=== PATIENT | male | born 1975 | race Caucasian/White ===

== ENCOUNTER 2023-03-23 12:10 | Observation (INO) ==
--- NOTE | 2023-03-23 13:09 | Emergency Department Note ---
Impression & Plan Weakness, Acute uremia, Acute hyperkalemia, CHF (congestive heart failure), Somnolence, Anemia ED Provider Note NAME: LUCIANA OCONNOR AGE: 48 SEX: M : 1975 ARRIVES VIA: Walk-In INFORMANT: [Patient][family] ED PROVIDER(S): [Jamey Ryan MD] CHIEF COMPLAINT: Confusion, weakness HISTORY OF PRESENT ILLNESS: The patient is a 48-year-old male who presents to the ER with complaints of weakness. The patient states that he has had issues for a year now with diarrhea. He cannot stop going to the bathroom. The diarrhea is watery and loose. There is no abdominal pain, no fever. The patient has not been to dialysis in 4 days. He had half of his dialysis on Tuesday, no dialysis Tuesday, Tuesday, Tuesday or Tuesday. No dialysis today. The patient was referred by the dialysis center to the ER as they were concerned that his electrolytes were critical. The patient is not short of breath, no chest pain. He does feel thirsty and washed out and weak. His family believes he at times seems confused. He has been having a harder time ambulating. He has had a significant weight loss. The patient does have known coronary disease. He had a renal transplant previously but this has now failed and he is requiring dialysis 3 times a week. The patient was told a month and a half ago that he had a bout of pancreatitis. He is scheduled to have some work done to check his gallbladder and biliary ducts. In the past, the patient has had C. difficile colitis. PMHx/PSHx/Social Hx: See Below PHYSICAL EXAM: GENERAL: Patient is in no acute distress. Thin and frail. HEENT: No acute trauma, normocephalic atraumatic, mucous membranes dry, no nasal congestion. NECK: No stridor, no adenopathy, no meningismus, trachea is midline. LUNGS: Clear to auscultation bilaterally, no wheeze, no rhonchi, breath sounds equal. HEART: Subtle systolic murmur heard best at the left sternal border, regular rate and rhythm. ABDOMEN: Soft, nontender, no peritonitis. EXTREMITIES: No cyanosis, full range of motion of all the joints without pain or difficulty. NEUROLOGIC: Somnolent but awakes to voice and answers questions appropriately, no speech slur, no acute motor or sensory deficits, no focal weakness. SKIN: No jaundice, no diaphoresis. DIFFERENTIAL DIAGNOSIS: Dehydration, hyperkalemia, electrolyte imbalance, uremia, IN, C. difficile colitis, bacterial intestinal infection, foodborne illness, bacteremia, among others. EMERGENCY DEPARTMENT PROCEDURES: MEDICAL DECISION MAKING: There is no leukocytosis, in fact, the white count is somewhat low. The patient is anemic with a hemoglobin of 11. I have no old values to use for comparison. There is a normal platelet count. INR is high at 1.5, PTT is normal. Renal panel testing shows uremia with a BUN of 95 and a creatinine of 13.12. An anion gap of 19 was seen. A mild acidosis was suspected with a CO2 of 20. Potassium was high at 5.5. Magnesium and phosphorus were both elevated. No concerning liver enzyme elevation. Total CK was not elevated making rhabdomyolysis unlikely. The patient appeared to be in a euthyroid state. ECG shows a normal sinus rhythm with LVH, no obvious ST elevation. Cardiac enzyme testing x 1 is slightly elevated. This troponin elevation could be secondary to cardiac injury or just mismatch from his heart failure and dialysis need. Stool cultures are pending. Stool C. difficile came back negative. Respiratory bio fire is pending. Chest x-ray shows cardiomegaly and some heart failure. Brain CT shows no acute bleed or mass effect. On exam, the patient was somnolent initially when he arrived but there were no focal neurologic deficits. He was easily arousable. He appeared weak and tired. Patient became agitated during his ER stay, he was given 1 mg of IV Ativan. I initially spoke with Dr. Raman of nephrology. The patient and Dr. Raman had an argument in the room and the patient fired Dr. Raman. I then spoke with Dr. St of [facility] nephrology. The patient will be dialyzed today. I did speak with the patient and his family, I did explain to him the seriousness of his presentation and findings. He understands the need for a hospitalization and for urgent dialysis. I did speak with case management, the on-call hospitalist was consulted. We have asked for records from [facility] to help us with this hospitalization, they have yet to arrive. Prior/Outside records/notes reviewed: ECG per my interpretation: Indication was weakness. The ECG shows a normal sinus rhythm with a rate of 80. LVH is present. There is some diffuse nonspecific ST change. No ST elevation. No PVCs. The QTc is 491. Continuous Cardiac Monitoring per my interpretation: An order was placed for continuous cardiac monitoring. The monitor shows a rate of 95 with normal sinus rhythm. Imaging/x-ray results per my interpretation: Chest x-ray shows some cardiomegaly and what appears to be some mild CHF. Chronic Medical/Social conditions affecting care: Requires dialysis 3 times a week. Care/Management discussed with: Nephrology-Dr. Raman and Dr. St. Case management and the on-call hospitalist. Level of care consideration(s): After review of the information above and other included data: --I believe the patient requires escalation of care to admission Critical Care Note: I have personally spent 53 minutes of critical care time in the direct management of this patient. This includes bedside care, interpretation of diagnostic studies, and testing, discussion with consultants, patient, and family members, and other required patient management activities. This 53 minutes is in excess of all separately billable procedures. DISPOSITION: Admission with nephrology consult. Past Med/Surg History Medical History ESRD (end stage renal disease) on dialysis Social History Smoking Status: Current every day smoker Feels Safe at Home: Yes Results & Data (ED) Vital Signs Vital Signs - 24 hr 03/23/23 12:24 03/23/23 13:51 03/23/23 13:52 Temperature 36.5 C Temperature Source Temporal Artery Scan Pulse Rate 95 H 84 84 Pulse Rate [Apical] Pulse Rate from SpO2 Sensor 84 Pulse Rhythm Regular Respiratory Rate 20 13 Respiratory Effort / Characteristics Non-Labored Spontaneous Respiratory Depth Normal Blood Pressure 138/83 Blood Pressure [Left Arm] Blood Pressure Mean 101 Blood Pressure Mean [Left Arm] Pulse Oximetry 100 97 Oxygen Delivery Method Room Air Sepsis Recent Fever Within 48 Hours No Sepsis New/Unexplained Change in Mental Status No Sepsis Action Taken by Nursing No Action Required 03/23/23 14:11 03/23/23 14:20 03/23/23 14:23 Temperature Temperature Source Pulse Rate 82 Pulse Rate [Apical] Pulse Rate from SpO2 Sensor 79 83 Pulse Rhythm Respiratory Rate 18 Respiratory Effort / Characteristics Respiratory Depth Blood Pressure Blood Pressure [Left Arm] Blood Pressure Mean Blood Pressure Mean [Left Arm] Pulse Oximetry 98 99 97 Oxygen Delivery Method Room Air Sepsis Recent Fever Within 48 Hours Sepsis New/Unexplained Change in Mental Status Sepsis Action Taken by Nursing 03/23/23 14:23 03/23/23 14:24 03/23/23 14:24 Temperature Temperature Source Pulse Rate 86 Pulse Rate [Apical] 81 Pulse Rate from SpO2 Sensor 80 Pulse Rhythm Respiratory Rate 16 16 Respiratory Effort / Characteristics Respiratory Depth Blood Pressure 146/90 H Blood Pressure [Left Arm] 146/90 H Blood Pressure Mean 120 Blood Pressure Mean [Left Arm] 108 Pulse Oximetry 96 100 Oxygen Delivery Method Room Air Sepsis Recent Fever Within 48 Hours Sepsis New/Unexplained Change in Mental Status Sepsis Action Taken by Nursing 03/23/23 14:30 03/23/23 14:40 03/23/23 14:50 Temperature Temperature Source Pulse Rate 84 78 82 Pulse Rate [Apical] Pulse Rate from SpO2 Sensor 84 78 78 Pulse Rhythm Respiratory Rate 11 L 13 21 Respiratory Effort / Characteristics Respiratory Depth Blood Pressure Blood Pressure [Left Arm] Blood Pressure Mean Blood Pressure Mean [Left Arm] Pulse Oximetry 99 100 100 Oxygen Delivery Method Sepsis Recent Fever Within 48 Hours Sepsis New/Unexplained Change in Mental Status Sepsis Action Taken by Nursing 03/23/23 14:57 03/23/23 14:57 03/23/23 15:00 Temperature Temperature Source Pulse Rate 76 Pulse Rate [Apical] Pulse Rate from SpO2 Sensor 76 76 Pulse Rhythm Respiratory Rate 16 Respiratory Effort / Characteristics Respiratory Depth Blood Pressure 135/86 Blood Pressure [Left Arm] Blood Pressure Mean 107 Blood Pressure Mean [Left Arm] Pulse Oximetry 100 100 Oxygen Delivery Method Sepsis Recent Fever Within 48 Hours Sepsis New/Unexplained Change in Mental Status Sepsis Action Taken by Prison Medications Current Medication List: was personally reviewed by me Laboratory Data Attestation: I reviewed the patient's lab results. 03/23/23 12:50 03/23/23 12:50 Lab Results 03/23/23 03/23/23 03/23/23 Range/Units 12:50 14:34 Unknown WBC 3.82 L (4.8-10.8) K/ul RBC 3.40 L (4.70-6.10) M/uL Hgb 11.0 L (14.0-18.0) g/dl Hct 33.3 L (42.0-52.0) % MCV 97.9 (80.0-100.0) fL MCH 32.4 (25.0-34.0) pg MCHC 33.0 (32.0-36.0) g/dL RDW Std Deviation 54.4 H (36.4-46.3) fL RDW Coeff of Chris 15.2 H (11.5-14.5) % Plt Count 190 (130-400) K/uL MPV 10.3 (9.4-12.4) fL Immature Gran % (Auto) 0.3 % Neut % (Auto) 64.1 % Lymph % (Auto) 23.3 % [place] % (Auto) 8.4 % Eos % (Auto) 2.6 % Baso % (Auto) 1.3 % Neut # (Auto) 2.45 (1.40-6.50) K/uL Lymph # (Auto) 0.89 L (1.20-3.40) K/uL [place] # (Auto) 0.32 (0.11-0.59) K/uL Eos # (Auto) 0.10 (0.00-0.50) K/uL Baso # (Auto) 0.05 (0.00-0.20) K/uL Immature Gran # (Auto) 0.01 (0.01-0.20) K/uL PT 15.6 H (9.0-12.0) Seconds INR 1.5 H (0.9-1.1) APTT 29 (21-31) Seconds PTT Ratio 1.0 Sodium 133 L (136-145) mmol/L Potassium 5.5 H (3.5-5.1) mmol/L Chloride 94 L (98-107) mmol/L Carbon Dioxide 20 L (21-32) mmol/L Anion Gap 19 H (3-11) BUN 95 H (6-23) mg/dl Creatinine 13.12 H* (0.6-1.4) mg/dl Est Cr Clr Drug Dosing Not Reportable Est GFR ( Amer) 4.5 ml/min Est GFR (Non-Af Amer) 3.9 ml/min BUN/Creatinine Ratio 7.2 L (10-20) Glucose 68 L (70-99(Fasting)) mg/dl Lactate Cancelled Calcium 9.7 (8.6-10.3) mg/dl Phosphorus 9.4 H (2.5-4.9) mg/dl Magnesium 2.7 H (1.7-2.4) mg/dl Total Bilirubin 0.7 (0.2-1.0) mg/dl AST 11 L (13-39) U/L ALT 10 (7-52) U/L Alkaline Phosphatase 144 H (34-104) U/L Ammonia 27.0 (18-72) umol/L Total Creatine Kinase 48 (30-223) U/L Troponin I High Sens 65.4 H* (0-20) pg/ml Total Protein 7.4 (6.0-8.3) gm/dl Albumin 3.8 (3.4-5.0) gm/dl Globulin 3.6 (2.5-4.0) gm/dl Albumin/Globulin Ratio 1.1 (0.9-2) TSH 0.837 (0.300-4.500) uIu/ml Stl C. diff Tox B Gene Negative Cdiff Gene (Neg) Administered Medications Discontinued Medications Lorazepam (Lorazepam 1 Mg/1 Ml Syr Ed Inj Use) 1 mg IV ONE STA Stop: 03/23/23 15:10 Last Admin: 03/23/23 15:20 Dose: 1 mg Documented By: K[facility] Imaging Data Radiologist's Impression: Chest X-Ray 03/23/23 13:05 XR chest 1V portable CLINICAL HISTORY: weakness TECHNIQUE: Single frontal radiograph of the chest was obtained. Comparison: None available at the time of this dictation. FINDINGS: No lines and tubes are seen. Cardiomegaly is noted. Prominence and cephalization of the vasculature is seen. No evidence of pleural effusion or pneumothorax. Old healed bilateral rib fractures are seen. IMPRESSION: Cardiomegaly and mild pulmonary edema. ACT 112: Negative or not required by law. Electronically signed by: Harshad Marquez M.D. 03/23/2023 1:[address] 03/23/23 13:05 CT OF THE HEAD WITHOUT CONTRAST CLINICAL HISTORY: Confusion. COMPARISON STUDY: No previous studies for comparison. CT DOSE: 547.75 mGy.cm TECHNIQUE: Helical axial images of the head were obtained without IV contrast. Automated exposure control was utilized for the study. A dose lowering technique was utilized adhering to the principles of ALARA. FINDINGS: No acute intracranial hemorrhage, midline shift or mass effect is present. The ventricular system is unremarkable. The basal cisterns are patent. No extra-axial collections are present. There are no findings to suggest acute dural sinus thrombosis or acute territorial infarct. No significant calvarial abnormalities are present. Visualized portions of the sinuses and mastoid air cells are clear. Small round metallic densities within the superior scalp and upper neck may reflect BBs. IMPRESSION: No acute intracranial findings. ACT 112: Negative or not required by law. Electronically signed by: Yrn Gibson M.D. 03/23/2023 2:18 PM Discharge Plan Visit Data Chief Complaint: Confusion Stated Complaint: WEAKNESS, CONFUSION, VOMITING, DIARREA, LETHARGIC ED Provider: Jamey Ryan Discharge Problem: Weakness, Acute uremia, Acute hyperkalemia, CHF (congestive heart failure), Somnolence, Anemia Patient Disposition: Admitted As Inpatient Condition: Serious Forms Stand Alone Forms: [facility] Referrals Referrals: PCP,NO [Primary Care Provider] - Discharge Problem: CHF (congestive heart failure) Qualifiers: Heart failure type: unspecified Heart failure chronicity: acute Qualified Code(s): I50.9 - Heart failure, unspecified Anemia Qualifiers: Anemia type: unspecified type Qualified Code(s): D64.9 - Anemia, unspecified
[2023-03-23 13:22] LABS: Basophils # (auto) 0.05 K/uL (0.00-0.20); Basophils % (auto) 1.3 %; Eosinophils % (auto) 2.6 %; Hematocrit (blood only) 33.3 % (42.0-52.0); Immature Granulocytes # (auto) 0.01 K/uL (0.01-0.20); Immature Granulocytes % (auto) 0.3 %; Lymphocytes # (auto) 0.89 K/uL (1.20-3.40); Lymphocytes % (auto) 23.3 %; Mean Corpuscular Hemoglobin 32.4 pg (25.0-34.0); Mean Corpuscular Volume 97.9 fL (80.0-100.0); Mean Platelet Volume 10.3 fL (9.4-12.4); Monocytes # (auto) 0.32 K/uL (0.11-0.59); Monocytes % (auto) 8.4 %; Neutrophils # (auto) 2.45 K/uL (1.40-6.50); Neutrophils % (auto) 64.1 %; Platelet Count 190 K/uL (130-400); RDW Coefficient of Variation 15.2 % (11.5-14.5); RDW Standard Deviation 54.4 fL (36.4-46.3); White Blood Count 3.82 K/ul (4.8-10.8)
--- NOTE | 2023-03-23 13:45 | XRay Report ---
XR chest 1V portable CLINICAL HISTORY: weakness TECHNIQUE: Single frontal radiograph of the chest was obtained. Comparison: None available at the time of this dictation. FINDINGS: No lines and tubes are seen. Cardiomegaly is noted. Prominence and cephalization of the vasculature i s seen. No evidence of pleural effusion or pneumothorax. Old healed bilateral rib fractures are seen. IMPRESSION: Cardiomegaly and mild pulmonary edema. ACT 112: Negative or not required by law. Electronically signed by: Harshad Marquez M.D. 03/23/2023 1:44 PM
[2023-03-23 13:49] LABS: INR 1.5 (0.9-1.1); Prothrombin Time 15.6 Seconds (9.0-12.0)
[2023-03-23 13:56] LABS: Alanine Aminotransferase 10 U/L (7-52); Albumin Globulin Ratio 1.1 (0.9-2); Albumin Level 3.8 gm/dl (3.4-5.0); Alkaline Phosphatase 144 U/L (34-104); Anion Gap 19 (3-11); Aspartate Aminotransferase 11 U/L (13-39); BUN Creatinine Ratio 7.2 (10-20); Bilirubin,Total 0.7 mg/dl (0.2-1.0); Blood Urea Nitrogen 95 mg/dl (6-23); Calcium 9.7 mg/dl (8.6-10.3); Carbon Dioxide 20 mmol/L (21-32); Chloride 94 mmol/L (98-107); Creatine Kinase 48 U/L (30-223); Est GFR (African American) 4.5 ml/min; Est GFR (Non-African American) 3.9 ml/min; Globulin 3.6 gm/dl (2.5-4.0); Glucose 68 mg/dl (70-99(Fasting)); Magnesium 2.7 mg/dl (1.7-2.4); Phosphorus 9.4 mg/dl (2.5-4.9); Potassium 5.5 mmol/L (3.5-5.1); Sodium 133 mmol/L (136-145); Total Protein 7.4 gm/dl (6.0-8.3); Troponin I High Sensitivity 65.4 pg/ml (0-20)
[2023-03-23 14:10] LABS: Thyroid Stimulating Hormone 0.837 uIu/ml (0.300-4.500)
--- NOTE | 2023-03-23 14:19 | CT Scan Report ---
CT OF THE HEAD WITHOUT CONTRAST CLINICAL HISTORY: Confusion. COMPARISON STUDY: No previous studies for comparison. CT DOSE: 547.75 mGy.cm TECHNIQUE: Helical axial images of the head were obtained without IV contrast. Automated exposure con trol was utilized for the study. A dose lowering technique was utilized adhering to the principles o f ALARA. FINDINGS: No acute intracranial hemorrhage, midline shift or mass effect is present. The ventricular system is unremarkable. The basal cisterns are patent. No extra-axial collections are present. There are no findings to suggest acute dural sinus thrombosis or acute territorial infarct. No significant calvarial abnormalities are present. Visualized portions of the sinuses and mastoid air cells are mike ar. Small round metallic densities within the superior scalp and upper neck may reflect BBs. IMPRESSION: No acute intracranial findings. ACT 112: Negative or not required by law. Electronically signed by: Yrn Gibson M.D. 03/23/2023 2:18 PM
[2023-03-23] MEDS ORDERED: LORazepam 1 MG/1 ML SYR ED Inj Use IV STA (15:09)
[2023-03-23 15:12] LABS: Partial Thromboplastin Time 29 Seconds (21-31)
--- NOTE | 2023-03-23 15:19 | Nephrology Consultation ---
Date of Consultation March 23, 2023 Assessment & Plan (1) ESRD (end stage renal disease) on dialysis: Difficult ESRD patient---Sig issues with patient and Dialysis unit--Lot of shortened Treatment and missed Dialysis mainly related with Diarrhea which is chronic. has seen Specialists for this. Issue with Chronic Pancreatitis/Gallbladder. Currently has High creat/BUn and K with some fluid overload and likely some uremia. will do dialysis today for 3.5 to 4hr and take about 1.5 kilo to 2 kilo based on tolerance. Other orders as per outpt. 2k bath. Give immodium now to avoid/Lower Diarrhea during dialysis. History of Present Illness Reason for Consultation: ESRD with missed dialysis History of Present Illness 48/M who presented to the ER with complaints of weakness and Diarrhea. He has had issues for a year now with diarrhea. this is causing lot of problem with Dialysis. Lot of shortened and missed dialysis because of that. The diarrhea is watery and loose. There is no abdominal pain, no fever. The patient was referred by the dialysis center to the ER as they were concerned that his electrolytes were critical. patient did not want to go to [facility] and instead came here. The patient is not short of breath, no chest pain. His family believes he at times seems confused. He has been having a harder time ambulating. He has had a significant weight loss. He had a renal transplant previously but this has now failed and he is requiring dialysis 3 times a week.The patient was told a month and a half ago that he had a bout of pancreatitis. He is scheduled to have some work done to check his gallbladder and biliary ducts. In the past, the patient has had C. difficile colitis. Dr Raman was there to see him earlier but patient got very mad and wanted different Doctor. patient is very agitated but now got some meds and now feels better. His mother and daughter was present at bedside and gave me more details. ROS----+ve for Diarrhea main issue, Pain all over the body. 12 systems reviewed and negative. Exam: Awake and alert but seems sedated after ativan and no distress. Chest Clear. CVS--RRR Abd--Soft non tender. Cachectic Ext--No edema. AVF in Left arm. Skin no rash Patient History Medical History (Updated 03/23/23 @ 15:35 by Soto Iglesias MD) ESRD (end stage renal disease) on dialysis Social History Smoking Status: Current every day smoker Feels Safe at Home: Yes Results & Data Vital Signs (Past 12 Hours) Vital Signs Temp Pulse Pulse Resp BP BP Pulse Ox 03/23/23 15:00 76 16 100 03/23/23 14:57 135/86 03/23/23 14:57 100 03/23/23 14:50 82 21 100 03/23/23 14:40 78 13 100 03/23/23 14:30 84 11 L 99 03/23/23 14:24 86 16 100 03/23/23 14:24 146/90 H 03/23/23 14:23 81 16 146/90 H 96 03/23/23 14:23 97 03/23/23 14:20 82 18 99 03/23/23 14:11 98 03/23/23 13:52 84 13 97 03/23/23 13:51 84 03/23/23 12:24 36.5 C 95 H 20 138/83 100 O2 Del Method 03/23/23 15:00 03/23/23 14:57 03/23/23 14:57 03/23/23 14:50 03/23/23 14:40 03/23/23 14:30 03/23/23 14:24 03/23/23 14:24 03/23/23 14:23 Room Air 03/23/23 14:23 Room Air 03/23/23 14:20 03/23/23 14:11 03/23/23 13:52 03/23/23 13:51 03/23/23 12:24 Room Air
--- NOTE | 2023-03-23 15:24 | History & Physical Report ---
Date of Service March 23, 2023 Assessment & Plan (1) ESRD (end stage renal disease) on dialysis: Plan: Acute metabolic encephalopathy suspect due to uremia; ESRD on dialysis Missed last session of dialysis and only received half session prior to that - Follows w [facility] Nephrology. Has had referalls between multiple nephrologists due to poor therapeutic alliance in the past -Hyperkalemic at 5.5, mild pulmonary edema, and is with uremic encephalopathy on admission -Nephrology consulted, anticipate urgent dialysis Patient will continue to follow-up with [facility] outpt dialysis once stable Ammonia is normal, patient denies history of liver disease. (2) Acute hyperkalemia: Plan: HD pending as noted, mild. 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 Kate -Denies chest pain/chest pressure on admission and in the preceding few days Patient had a diagnostic catheterization with Dr. Kate (reportedly due to bloodwork abnormality per family). Records are pending, per family this showed multivessel disease for which she was recommended to follow-up as outpatient for bypass surgery. As this was suspected to be delayed due to his ESRD and medical comorbidities and he was a poor overall candidate for bypass surgery, is pending follow-up for repeat catheterization and stent placement - Trop 65.4 on admission, no chest pain, , no acute EKG change no territorial signs of ischemia on EKG. Suspect demand ischemia/delayed clearance with ESRD. Echo pending (5) Diarrhea: Plan: - Patient endorses pancreatitis 1 month ago which resolved, but has had continual and ongoing intermittent loose/watery diarrhea without blood or melena Is pending EGD with [facility], has not been stable enough from a volume/cardiac standpoint to undergo this. Reports he is not sure what past imaging of his abdomen has shown. Records are pending Transaminases are not elevated on admission Lipase is pending No emergent indication for GI consultation on admission, will optimize volume status/electrolytes, obtain lipase, and follow clinically. C. difficile is negative he has a history of C. difficile, this is negative on admission. Will treat with Imodium. Will trial Pancreaze for? Pancreatic insufficiency; if patient develops abdominal pain or is an elevated lipase we will pursue abdominal imaging however neither of these are present at time of admission. Patient is not sure if he would like to follow-up with [facility] versus pursuing alternative institution. Due to his insurance cannot follow-up with [facility] providers, would consider following up with [facility] if needed Patient is anemic without bleeding, and significant weight loss. Nutritional panel ordered including iron studies, B12, folate, ttg-iga Calprotectin pending -Will defer additional advanced imaging until records from [facility] are reviewed? Past CT/MRI, patient reports he did have some imaging in the last month has not had worsening since that time (6) Alport syndrome: Plan: With renal, otic complications. Plan DVT prophylaxis: Heparin Diet: Type II DM, renal Disposition: PCU CODE STATUS: Full History of Present Illness Primary Care Provider: NO PCP Per ER: Avel Fitzgerald is a 48yo M who is a [facility] [place] patient, were f rustrated by care there so came to [facility] after he was told by dialysis group due to missing too many treatments to have outpt dialysis. 1/2 dialysis tuesday due to diarrhea, missed Tuesday session. Went Tuesday but was not scheduled and they could not accomodate him. Went today but was somnolent and uremic so was referred to ER, came to [facility] instead. 1 dose of ativan for agitation in ER. Hx of kidney transplant which lasted 20 years. Per Pt: Patient seen at bedside. He oriented to name, , and year but is intermittently confused and limited historian. Collateral collected from family at bedside. Patient has a history of Alport syndrome with renal failure who had a transplant which was stable for a little over 20 years after which it failed. He is continued on tacrolimus but is hemodialysis dependent which she gets Tuesday/Tuesday/Tuesday via a left AV fistula. Patient has had ongoing diarrhea which has interrupted and caused problems with dialysis. He has had multiple shortened and missed episodes due to this. Watery and loose diarrhea, is C. difficile negative. Patient was pending an EGD as an outpatient with [facility] GI however has not been stable enough to undergo endoscopy due to recurrent cardiac and renal issues. He and family reports he has never had chest pain, although he fatigues easily, but reportedly due to an elevated blood marker likely troponin did have an ultrasound performed which showed an EF of around 30-35%. He had a diagnostic catheterization performed with Dr. Kate and was recommended for referral as outpatient for cardiac byp ass; however due to his ESRD instability this was not expected to be able to be performed in the near future and patient was reportedly being scheduled for a repeat cath and stent but has not yet followed up for this. He reports he has had no chest pain recently. Records have been requested from [facility] to help clarify. Patient reports he also had a history of TIA/stroke without residual deficits, thinks he is supposed to be on Plavix but has not taken this recently. Denies history of bleeding. Patient and family report his most bothersome symptom is weight loss with diarrhea. He had an episode of pancreatitis about a month ago which resolved, has not had follow-up with GI for EGD, or repeat evaluation of his gallbladder/biliary ducts. He did have a past history of C. difficile which was treated with antibiotics; C. difficile toxin is negative this admission. Reports he is also diabetic but does not always take his insulin and is not sure what home blood sugars have been like recently. He was on prednisone 30-day course prescribed about a month ago, they are not sure if he is still supposed to take this or not but no he definitely takes his tacrolimus daily. Patient family report he fatigues easily and has very little energy, but does not get chest pain on exertion and has not noticed any orthopnea. No leg swelling Medical History: Reviewed Medications: Reviewed Surgical History: Reviewed Family history: Reviewed Allergies: Reviewed Social History: 0.5ppd tobacco use Code Status: Full -Dr. Monreal --> left their practice 1-2 years ago and forwarded to Dr. Landon [phone]. Transferred from their group [address] Rock [phone], did not establish there. Current PCP is Dr. Null [facility] and Cardiology with Dr. Kate per family. Allergies Allergy/AdvReac Type Severity Reaction Status Date / Time No Known Allergies Allergy Unverified 03/23/23 15:57 Home Medications Medication Instructions Recorded Confirmed Type atorvastatin 40 mg tablet 40 mg PO DAILY 03/23/23 03/23/23 History insulin NPH isoph U-100 human 100 20 unit subcut AMHS 03/23/23 03/23/23 History unit/mL (3 mL) subcutaneous pen (Novolin N FlexPen) insulin aspart U-100 100 unit/mL 0 unit subcut BIDM 03/23/23 03/23/23 History (3 mL) subcutaneous pen (Novolog FlexPen U-100 Insulin aspart) multivitamin 1 tab PO DAILY 03/23/23 03/23/23 History omeprazole 40 mg capsule,delayed 40 mg PO DAILY 03/23/23 03/23/23 History release prednisone 5 mg tablet 5 mg PO DAILY 03/23/23 03/23/23 History sevelamer carbonate 800 mg tablet 2,400 mg PO TID 03/23/23 03/23/23 History tacrolimus 1 mg capsule, 1 mg PO BID 03/23/23 03/23/23 History immediate-release topiramate 25 mg tablet 25 mg PO DAILY 03/23/23 03/23/23 History tramadol 50 mg tablet 50 mg PO DIRECTED PRN Pain 03/23/23 03/23/23 History Past Med/Surg History Medical History (Updated 03/23/23 @ 16:09 by Javed Carrillo MD) Alport syndrome Diarrhea CHF (congestive heart failure) ESRD (end stage renal disease) on dialysis Social History Smoking Status: Current every day smoker Feels Safe at Home: Yes Physical Exam Physical Exam: General: Thin. Awakens easily to voice, answers some questions appropriately but intermittently confused HEENT: Atraumatic, normocephalic. Vision grossly intact, hard of hearing Pulm: Bibasilar crackles, no overt rales-wheezes, -rhonchi. Symmetrical chest rise. No increased work of breathing. No respiratory distress. Cardiac: RRR, -mrg. Radial pulses intact and symmetrical. Abdominal: Nontender, nondistended, soft. BS present. Extremities: No edema. L AVF +thrill. Results & Data Results & Data Vital Signs (Past 12 Hours) Vital Signs Temp Pulse Pulse Resp BP BP Pulse Ox 03/23/23 15:00 76 16 100 03/23/23 14:57 135/86 03/23/23 14:57 100 03/23/23 14:50 82 21 100 03/23/23 14:40 78 13 100 03/23/23 14:30 84 11 L 99 03/23/23 14:24 86 16 100 03/23/23 14:24 146/90 H 03/23/23 14:23 81 16 146/90 H 96 03/23/23 14:23 97 03/23/23 14:20 82 18 99 03/23/23 14:11 98 03/23/23 13:52 84 13 97 03/23/23 13:51 84 03/23/23 12:24 36.5 C 95 H 20 138/83 100 O2 Del Method 03/23/23 15:00 03/23/23 14:57 03/23/23 14:57 03/23/23 14:50 03/23/23 14:40 03/23/23 14:30 03/23/23 14:24 03/23/23 14:24 03/23/23 14:23 Room Air 03/23/23 14:23 Room Air 03/23/23 14:20 03/23/23 14:11 03/23/23 13:52 03/23/23 13:51 03/23/23 12:24 Room Air PG Care Time/CCT Total # of Minutes Spent Total Time Spent with Patient: Total time spent is greater than 50% in coordination of care (as documented) at patient's floor/unit and/or counseling patient: Coding Level of Care Code 69114 INT INP/OBS CARE 3/75MIN Diagnoses ESRD (end stage renal disease) on dialysis N18.6; Z99.2 Acute hyperkalemia E87.5 Acute uremia N19 CHF (congestive heart failure) I50.9 Heart failure chronicity: acute Heart failure type: unspecified Diarrhea R19.7 Alport syndrome Q87.81 (4) CHF (congestive heart failure) Heart failure chronicity: acute Heart failure type: unspecified Qualified Code(s): I50.9 - Heart failure, unspecified
[2023-03-23 16:05] LABS: Adenovirus PCR Not Detected (NotDetected); Bordetella parapertussis PCR Not Detected (NotDetected); Bordetella pertussis PCR Not Detected (NotDetected); Chlamydia pneumoniae PCR Not Detected (NotDetected); Coronavirus 229E PCR Not Detected (NotDetected); Coronavirus CoV-2 (COVID19)PCR Not Detected (NotDetected); Coronavirus HKU1 PCR Not Detected (NotDetected); Coronavirus NL63 PCR Not Detected (NotDetected); Coronavirus OC43PCR Not Detected (NotDetected); Human Metapneumovirus PCR Not Detected (NotDetected); Influenza A PCR Not Detected (NotDetected); Influenza B PCR Not Detected (NotDetected); Mycoplasma pneumoniae PCR Not Detected (NotDetected); Parainfluenza Virus 1 PCR Not Detected (NotDetected); Parainfluenza Virus 2 PCR Not Detected (NotDetected); Parainfluenza Virus 3 PCR Not Detected (NotDetected); Parainfluenza Virus 4 PCR Not Detected (NotDetected); Respiratory Syncytial VirusPCR Not Detected (NotDetected); Rhinovirus/Enterovirus PCR Not Detected (NotDetected)
[2023-03-23] MEDS ORDERED: LOPERAMIDE HCL 2 MG CAP PO PRN (16:05)
[2023-03-23] MEDS ORDERED: LOPERAMIDE HCL 2 MG CAP PO STA (16:05)
[2023-03-23 16:14] LABS: Adenovirus F 40/41 PCR Not Detected (NotDetected); Astrovirus PCR Not Detected (NotDetected); Campylobacter PCR Not Detected (NotDetected); Cryptosporidium PCR Not Detected (NotDetected); Cyclospora cayetanensis PCR Not Detected (NotDetected); Entamoeba histolytica PCR Not Detected (NotDetected); Enteroaggregative E.coli(EAEC) Not Detected (NotDetected); Enteropathogenic E.coli (EPEC) Not Detected (NotDetected); Enterotoxigenic E.coli (ETEC) Not Detected (NotDetected); Giardia lamblia PCR Not Detected (NotDetected); Norovirus GI/GII PCR Not Detected (NotDetected); Plesiomonas shigelloides PCR Not Detected (NotDetected); Rotavirus A PCR Not Detected (NotDetected); Salmonella PCR Not Detected (NotDetected); Sapovirus PCR Not Detected (NotDetected); Shiga-like Toxin E.coli (STEC) Not Detected (NotDetected); Shigella/Enteroinvasive E.coli Not Detected (NotDetected); Vibrio cholerae PCR Not Detected (NotDetected); Vibrio species PCR Not Detected (NotDetected); Yersinia enterocolitica PCR Not Detected (NotDetected)
[2023-03-23] MEDS ORDERED: STAT IV/IM STA (16:21)
[2023-03-23] MEDS ORDERED: CALCIUM GLUCONATE 10% 1,000 MG in SODIUM CHLOR 0.9% MINI-B 50 ML IV ONE (16:21)
[2023-03-23] MEDS ORDERED: GLUCOSE 40% GEL 15 GM TUBE PO PRN (16:57)
[2023-03-23] MEDS ORDERED: DEXTROSE 50% 50 ML SYRINGE IV PRN (16:57)
[2023-03-23] MEDS ORDERED: GLUCAGON FOR INJ 1 MG VIAL SQ PRN (16:57)
[2023-03-23] MEDS ORDERED: GLUCOSE 10 TAB/TUBE PO PRN (16:57)
[2023-03-23] MEDS ORDERED: PHARMACY GLYCEMIC MGMT CONSULT PRN (16:57)
[2023-03-23] MEDS ORDERED: CARBOHYDRATES FOR HYPOGLYCEMIA PO PRN (16:57)
[2023-03-23] MEDS ORDERED: PANCREAZE (LIPASE 10,500U) CAP PO SCH (17:00)
[2023-03-23] MEDS ORDERED: NICOTINE 14 MG/24 HR PATCH TD SCH (17:00)
[2023-03-23] MEDS ORDERED: Patient's HEIGHT &/or WEIGHT Needed SCH (17:15)
[2023-03-23 17:19] LABS: Troponin I High Sensitivity 62.3 pg/ml (0-20)
[2023-03-23] MEDS ORDERED: SODIUM CHLORIDE 0.9% 1,000 ML IV PRN (17:27)
[2023-03-23] MEDS ORDERED: HEPARIN SOD (PORCINE) 1000 UNIT/ML IV ONE (17:27)
[2023-03-23 17:31] LABS: Ferritin 395.8 ng/ml (8-388)
[2023-03-23 17:35] LABS: Folate (Folic Acid),Ser orPlas > 22.30 ng/ml (>5.38)
[2023-03-23 17:37] LABS: Vitamin B12 1396 pg/ml (180-914)
[2023-03-23] MEDS ORDERED: traMADol HCL 50 MG TABLET PO PRN (17:48)
[2023-03-23 18:41] LABS: Estimated Average Glucose 117 mg/dl; Hemoglobin A1C 5.7 % (4.5-5.6)
[2023-03-23] MEDS: Patient's HEIGHT &/or WEIGHT Needed SCH ×2 (20:56→20:58)
[2023-03-23] MEDS ORDERED: INSULIN ASPART PER UNIT CHARGE SC SCH (21:00)
[2023-03-23] MEDS ORDERED: TACROLIMUS 1 MG CAP PO SCH (21:00)
--- NOTE | 2023-03-23 21:19 | Discharge Summary ---
Date of Service March 23, 2023 Admission HPI Per Admitting Provider Per ER: Avel Fitzgerald is a 48yo M who is a [facility] [place] patient, were frustrated by care there so came to [facility] after he was told by dialysis group due to missing too many treatments to have outpt dialysis. 1/2 dialysis tuesday due to diarrhea, missed Tuesday session. Went Tuesday but was not scheduled and they could not accomodate him. Went today but was somnolent and uremic so was referred to ER, came to [facility] instead. 1 dose of ativan for agitation in ER. Hx of kidney transplant which lasted 20 years. Per Pt: Patient seen at bedside. He oriented to name, , and year but is intermittent ly confused and limited historian. Collateral collected from family at bedside. Patient has a history of Alport syndrome with renal failure who had a transplant which was stable for a little over 20 years after which it failed. He is continued on tacrolimus but is hemodialysis dependent which she gets Tuesday/Tuesday/Tuesday via a left AV fistula. Patient has had ongoing diarrhea which has interrupted and caused problems with dialysis. He has had multiple shortened and missed episodes due to this. Watery and loose diarrhea, is C. difficile negative. Patient was pending an EGD as an outpatient with [facility] however has not been stable enough to undergo endoscopy due to recurrent cardiac and renal issues. He and family reports he has never had chest pain, although he fatigues easily, but reportedly due to an elevated blood marker likely troponin did have an ultrasound performed which showed an EF of around 30-35%. He had a diagnostic catheterization performed with Dr. Kate and was recommended for referral as outpatient for cardiac bypass; however due to his ESRD instability this was not expected to be able to be performed in the near future and patient was reportedly being scheduled for a repeat cath and stent but has not yet followed up for this. He reports he has had no chest pain recently. Records have been requested from [facility] to help clarify. Patient reports he also had a history of TIA/stroke without residual deficits, thinks he is supposed to be on Plavix but has not taken this recently. Denies history of bleeding. Patient and family report his most bothersome symptom is weight loss with diarrhea. He had an episode of pancreatitis about a month ago which resolved, has not had follow-up with GI for EGD, or repeat evaluation of his gallbladder/biliary ducts. He did have a past history of C. difficile which was treated with antibiotics; C. difficile toxin is negative this admission. Reports he is also diabetic but does not always take his insulin and is not sure what home blood sugars have been like recently. He was on prednisone 30-day course prescribed about a month ago, they are not sure if he is still supposed to take this or not but no he definitely takes his tacrolimus daily. Patient family report he fatigues easily and has very little energy, but does not get chest pain on exertion and has not noticed any orthopnea. No leg swelli ng Medical History: Reviewed Medications: Reviewed Surgical History: Reviewed Family history: Reviewed Allergies: Reviewed Social History: 0.5ppd tobacco use Code Status: Full -Dr. Monreal --> left their practice 1-2 years ago and forwarded to Dr. Landon [phone]. Transferred from their group [address] Rock [phone], did not establish there. Current PCP is Dr. Null [facility] and Cardiology with Dr. Kate per family. Principal Diagnosis Uremia Discharge Exam Constitutional well developed and well nourished Eyes + anicteric sclerae Neck trachea midline, no thyromegaly Respiratory normal respiratory effort; no respiratory distress Auscultation: lungs clear to auscultation bilaterally Cardiovascular Rate/Rhythm: regular rate and regular rhythm Psychiatric Orientation: alert and oriented x 3 Affect: + irritable affect Suicidal Thoughts: denies suicidal thoughts Cognition: recent memory grossly intact, remote memory grossly intact and attention grossly intact Discharge Data Allergies Allergy/AdvReac Type Severity Reaction Status Date / Time No Known Allergies Allergy Unverified 03/23/23 15:57 Consultations 03/23/23 14:40 ED Decision to Admit Stat 03/23/23 14:59 Consult Nephrology Stat Ordered Studies 03/23/23 13:05 CT head/brain wo con Stat Hospital Course (1) ESRD (end stage renal disease) on dialysis: Acute metabolic encephalopathy suspect due to uremia; ESRD on dialysis Missed last session of dialysis and only received half session prior to that - Follows w [facility] Nephrology. Has had referalls between multiple nephrologists due to poor therapeutic alliance in the past -Hyperkalemic at 5.5, mild pulmonary edema, and is with uremic encephalopathy on admission -Nephrology consulted, anticipate urgent dialysis Patient will continue to follow-up with [facility] dialysis once stable Ammonia is normal, patient denies history of liver disease. Immediately after the patient was brought back to the room from hemodialysis, he was requesting to leave the hospital AGAINST MEDICAL ADVICE. I went discussed with the patient about his risk of leaving AMA such as electrolyte abnormalities, arrhythmia, pulmonary edema, hyperkalemia, ambulatory problems, and possibility of . Patient understands these risks. He is able to tell me the date, who the president is, the situation that brought him here, and he has no suicidal intent. His plan is to get an Uber and go home. After multiple attempts of trying to get him to stay, patient refused and stated he wanted to leave immediately. He has decision making capability. Patient signed the AMA form of sound mind understanding the risks of leaving the hospital. An AMA discharge order was placed. Encouraged the patient to follow-up with his PCP as soon as possible. (2) Acute hyperkalemia: HD pending as noted, mild. 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 Kate -Denies chest pain/chest pressure on admission and in the preceding few days Patient had a diagnostic catheterization with Dr. Kate (reportedly due to bloodwork abnormality per family). Records are pending, per family this showed multivessel disease for which she was recommended to follow-up as outpatient for bypass surgery. As this was suspected to be delayed due to his ESRD and medical comorbidities and he was a poor overall candidate for bypass surgery, is pending follow-up for repeat catheterization and stent placement - Trop 65.4 on admission, no chest pain, , no acute EKG change no territorial signs of ischemia on EKG. Suspect demand ischemia/delayed clearance with ESRD. Echo pending (5) Diarrhea: - Patient endorses pancreatitis 1 month ago which resolved, but has had continual and ongoing intermittent loose/watery diarrhea without blood or melena Is pending EGD with [facility], has not been stable enough from a volume/cardiac standpoint to undergo this. Reports he is not sure what past imaging of his abdomen has shown. Records are pending Transaminases are not elevated on admission Lipase is pending No emergent indication for GI consultation on admission, will optimize volume status/electrolytes, obtain lipase, and follow clinically. C. difficile is negative he has a history of C. difficile, this is negative on admission. Will treat with Imodium. Will trial Pancreaze for? Pancreatic insufficiency; if patient develops abdominal pain or is an elevated lipase we will pursue abdominal imaging however neither of these are present at time of admission. Patient is not sure if he would like to follow-up with [facility] versus pursuing alternative institution. Due to his insurance cannot follow-up with [facility] providers, would consider following up with [facility] if needed Patient is anemic without bleeding, and significant weight loss. Nutritional panel ordered including iron studies, B12, folate, ttg-iga Calprotectin pending -Will defer additional advanced imaging until records from [facility] are reviewed? Past CT/MRI, patient reports he did have some imaging in the last month has not had worsening since that time (6) Alport syndrome: With renal, otic complications. Plan Disposition: Left AGAINST MEDICAL ADVICE CODE STATUS: Full Total Time Total Time Spent Total Time Spent (In Minutes): 30 Discharge Plan Discharge Items Patient Disposition: Against Medical Advice Reason For Visit: HD-ERSD, HYPERKALEMIA Discharge Diagnosis: ESRD, Hyperkalemia Condition on Discharge: Serious Activity: Resume your previous activity Non-emergency contact: Primary Care Provider and Veneer Clipper Call non-emergency contact if: you have any medication questions Follow-up/Referrals: Carlos Huitron MD [Primary Care Provider] - Diet: Dialysis Renal Addtl Attending Provider Instructions: Left AMA Pending Studies at Discharge: No Stand-Alone Forms: My Intio, Smoking Cessation Medications and DC Order Prescriptions: Continued atorvastatin 40 mg tablet 40 mg PO DAILY prednisone 5 mg tablet 5 mg PO DAILY Rx Instructions: not filled since 12/27/2022 for 30 days, Daughter says he should be taken. topiramate 25 mg tablet 25 mg PO DAILY omeprazole 40 mg capsule,delayed release(DR/EC) 40 mg PO DAILY tramadol 50 mg tablet 50 mg PO DIRECTED PRN (Reason: Pain) tacrolimus 1 mg capsule 1 mg PO BID Rx Instructions: This dose is per daughter sevelamer carbonate 800 mg tablet 2,400 mg PO TID Novolin N FlexPen 100 unit/mL (3 mL) insulin pen 20 unit SUBCUT AMHS Rx Instructions: TAKE WITH LUNCH & SUPPER insulin aspart U-100 [Novolog FlexPen U-100 Insulin] 100 unit/mL (3 mL) insulin pen 0 unit SUBCUT BIDM Rx Instructions: Take with lunch & supper multivitamin Tablet 1 tab PO DAILY Discharge Orders: Left Against Medical Advice (Routine); Ordered 03/23/23 Ordered By: Jordan Obrien Admission Data Admit Date/Time: 03/23/23 16:00 Attending Provider: Javed Carrillo Admit Provider: Javed Carrillo Primary Care Provider: Carlos Huitron Other Providers: Soto Iglesias Supervising Physician Co-Signing Physician Notes Patient left AMA overnight immediately following dialysis administration. Patient was seen overnight by on-call resident who reviewed risks of leaving AMA. Patient demonstrated capacity and understanding of his medical condition and the risks of leaving AMA, and had capacity to do so. Did not endorse any SI/HI. Patient left AMA prior to attending re-evaluation.
[2023-03-23 21:34] LABS: Calcium 9.5 mg/dl (8.6-10.3); Creatinine Clr Calc Pharmacy 20.2 ml/min; Est GFR (African American) 10.6 ml/min; Est GFR (Non-African American) 9.1 ml/min; Potassium 3.8 mmol/L (3.5-5.1)
[2023-03-24] MEDS ORDERED: SEVELAMER HCL 800 MG TABLET PO SCH (08:00)
[2023-03-24] MEDS ORDERED: PANTOprazole 40 MG TAB PO SCH (09:00)
[2023-03-24] MEDS ORDERED: HEPARIN SOD 5,000 UNIT/0.5 ML VIAL SQ SCH (09:00)
[2023-03-24] MEDS ORDERED: ATORVASTATIN 40 MG TAB PO SCH (09:00)
[2023-03-24] MEDS ORDERED: TOPIRAMATE 25 MG TAB PO SCH (09:00)
--- NOTE | 2023-03-25 19:09 | Electrocardiogram Report ---
Test Reason : Blood Pressure : / mmHG Vent. Rate : 080 BPM Atrial Rate : 080 BPM P-R Int : 138 ms QRS Dur : 098 ms QT Int : 426 ms P-R-T Axes : 082 046 148 degrees QTc Int : 491 ms Normal sinus rhythm Left ventricular hypertrophy with repolarization abnormality Prolonged QT Abnormal ECG No previous ECGs available Confirmed by Arthur Aldrich ([id number]) on 03/25/2023 7:09:39 PM Referred By: Confirmed By:Arthur Aldrich
== END 2023-03-23 21:20 | disposition left against medical advice (07) ==
LOC: ED 12:10 → INTOOBSV 16:00 → 2E 16:00